=== PATIENT | male | born 1960 | race Caucasian/White ===

== ENCOUNTER → 2020-06-29 09:51 | Outpatient (CLI) | payer BC, SELFPAY ==
--- NOTE | ~2020-06-29 | XR_ITS ---
EXAMINATION: XR shoulder LT min 2V DATE: 06/29/2020 10:13 INDICATION: Left shoulder pain. TECHNIQUE: 4 views of left shoulder were obtained. COMPARISON: None. FINDINGS: Bone alignment is normal. No fracture. Glenohumeral joint is normal. There is mild acromioc lavicular joint osteoarthritis. IMPRESSION: 1. Mild left acromioclavicular joint osteoarthritis. Reviewed, dictated and finalized at location B. ENT SERVICES COORDINATOR
== END ==
PROVIDERS: PCP Family Medicine; Visit Provider Nurse Practitioner Family
DX: M25.512 Pain in left shoulder (principal); M19.012 Primary osteoarthritis, left shoulder
CPT/HCPCS: 73030

== ENCOUNTER 2020-11-11 08:18 | Outpatient (CLI) | payer BC, SELFPAY ==
--- NOTE | ~2020-11-11 | MR_ITS ---
EXAMINATION: MR shoulder LT wo con DATE: 11/11/2020 09:49 INDICATION: Left shoulder pain. TECHNIQUE: Magnetic resonance imaging (MRI) of the left shoulder was performed without intravenous co ntrast. Sequences included axial PD-weighted FS FSE, coronal oblique PD-weighted FS FSE and T2-weight ed FS FSE, and sagittal oblique T2-weighted FS FSE and T1-weighted FSE. COMPARISON: Left shoulder radiographs 06/29/2020 FINDINGS: Coracoacromial arch: The acromion undersurface is curved in morphology (type II). There is severe acromioclavicular joint osteoarthritis including inferiorly directed osteophytes. There is mild subacromial/subdeltoid bursit is. Rotator cuff: There is moderate supraspinatus and infraspinatus tendinopathy. There is an interstitial partial-thic kness tear of supraspinatus tendon at its distal attachment measuring 6 mm anterior to posterior by 2 mm proximal to distal by 50% tendon thickness. Teres minor tendon is normal. There is mild subscapul indra tendinopathy. There is no asymmetric fatty atrophy of the rotator cuff muscle bellies. Biceps tendon and glenoid labrum: Biceps tendon is in bicipital groove. Intra-articular biceps tendon is normal. There is degenerative tearing of the superior glenoid labrum. Fluid: There is a small glenohumeral joint effusion. Bones/cartilage: Humeral head cartilage is normal. Glenoid cartilage is normal. IMPRESSION: 1. Partial-thickness interstitial tear of supraspinatus tendon at its distal attachment. 2. Degenerative tearing of superior glenoid labrum (type I SLAP tear). 3. Severe acromioclavicular joint osteoarthritis. 4. Small glenohumeral joint effusion. 5. Mild subacromial/subdeltoid bursitis. Reviewed, dictated and finalized at location A. IMPRESSION: 1. Partial-thickness interstitial tear of supraspinatus tendon at its distal at tachment. 2. Degenerative tearing of superior glenoid labrum (type I SLAP tear). 3. Severe acromioclavicular joint osteoarthritis. 4. Small glenohumeral joint effusion. 5. Mild subacromial/subdeltoid bursitis.
== END 2020-11-11 08:19 | disposition home or self-care (01) ==
PROVIDERS: PCP Family Medicine; Visit Provider Physician Assistant Medical
DX: M19.012 Primary osteoarthritis, left shoulder (principal); M25.412 Effusion, left shoulder; M75.52 Bursitis of left shoulder; S43.432A Superior glenoid labrum lesion of left shoulder, initial encounter; X58.XXXA Exposure to other specified factors, initial encounter
CPT/HCPCS: 73221

== ENCOUNTER 2021-02-22 03:02 | Day surgery (SDC) | payer BC, SELFPAY ==
[2021-02-08 14:06] VITALS: BMI 26.4
[2021-02-22 06:37] VITALS: BP 138/85; PULSE 82; RESP 20; TEMP 36.2; O2SAT 100; BMI 27.1
[2021-02-22] MEDS: LACTATED RINGERS 1,000 ML 150 ML IV CONT (06:43)
--- NOTE | 2021-02-22 07:28 | P.HP_ITS ---
History of Present Illness History of Present Illness Consent: Risks, benefits, and alternatives have been discussed and questions answered. Patient agrees to proceed with procedure. Chief complaint: neoplasm screening Narrative: Phil Chacon is a 60 year old male Referred for colon cancer screening. His last colonoscopy was 10 years ago. He has had no problems other than seen some red blood in his stools a few months ago which was attributed to hemorrhoids. Review of Systems Review of Systems: All systems reviewed & are unremarkable except as noted in HPI and below PMFSH Past Medical History Medical History Arthritis BMI 27.0-27.9,adult Cholecystectomy planned Fever Hernia Tonsillectomy planned Wears glasses Surgical History Surgical History H/O lithotripsy History of cholecystectomy History of hernia repair History of tonsillectomy Family History Family History Grandparent Hypertension Cerebrovascular accident Family history of malignant neoplasm Family history of lung cancer Father COPD (chronic obstructive pulmonary disease) Mother Diabetes mellitus Hypertension Hyperlipidemia Sibling Hypertension Rheumatoid arthritis Social History Social History Smoking status: Never smoker Second hand tobacco smoke exposure: No Alcohol intake: current Drinks per week: 4 Alcohol use details: Socially Substance use: never Substance use type: does not use Living arrangements: with family Additional occupation/education comments: [employer] Gender identity (if verbalized by the patient): Male Spiritual care concerns: No Meds Home Medications and Allergies Home Medications Medication Instructions Recorded Confirmed Type multivitamin-ferrous 1 tablet PO DAILY 06/29/20 02/08/21 History fumarate-folic acid 18 mg-400 mcg tablet chlorhexidine gluconate 4 % 1 applic TOPICAL ONCE #237 ml 01/23/21 02/08/21 Rx topical liquid atorvastatin 10 mg PO DAILY 02/08/21 02/08/21 History Allergies Allergy/AdvReac Type Severity Reaction Status Date / Time No Known Allergies Allergy Unknown Unknown Uncoded 02/22/21 06:36 Vital Signs Vital Signs - 24 hr 02/22/21 06:37 Temperature 36.2 C L Pulse Rate 82 Respiratory Rate 20 Blood Pressure 138/85 Pulse Oximetry 100 Exam Resp: Auscultation: clear to auscultation bilaterally Cardio: Rate: regular rate Rhythm: regular rhythm GI: GI Palp: Yes Soft to palpation and No Tenderness to palpation present (GI) Assessment and Plan Assessment and plan (1) Screening for colon cancer: Code(s): Z12.11 - Encounter for screening for malignant neoplasm of colon Status: Acute Assessment and Plan: Colonoscopy with possible biopsy or polypectomy or cautery or injection of substances.
--- NOTE | 2021-02-22 07:52 | WPDANESEFPP ---
Anes - Eval Final PreProcedure Day of Procedure 02/22/21 07:52 Patient weight: normal Heart: regular rate and rhythm Lungs: clear to auscultation and normal air movement Airway: Mallampati scale class II Neurological: alert and oriented ASA classification: II Emergent: no Anesthetic plan: proceed Anesthesia type and monitoring: general GIVS and standard monitoring Informed Consent: The patient's anesthetic plan and its attendant risks and benefits were discussed with the patient/family/POA. Questions were solicited and answers provided to the satisfaction of the patient/family/POA.
--- NOTE | 2021-02-22 07:54 | WPDANESEFPP ---
Anes - Eval Final PreProcedure Day of Procedure 02/22/21 07:54 Patient weight: overweight Heart: regular rate and rhythm Lungs: clear to auscultation and normal air movement Airway: Mallampati scale class II Neurological: alert and oriented Last oral intake: >/= 8 hours ASA classification: II Emergent: no Anesthetic plan: proceed Anesthesia type and monitoring: general GIVS Informed Consent: The patient's anesthetic plan and its attendant risks and benefits were discussed with the patient/family/POA. Questions were solicited and answers provided to the satisfaction of the patient/family/POA.
[2021-02-22] MEDS: SIMETHICONE ORAL SUSPENSION 20 MG/0.3 ML 30 ML BOTTLE 0.6 ML IRRIGATION (08:08)
[2021-02-22 08:15] VITALS: BP 108/66; PULSE 68; RESP 18; O2SAT 98
[2021-02-22 08:25] VITALS: BP 112/70; PULSE 63; RESP 18; O2SAT 98
[2021-02-22 08:35] VITALS: BP 128/75; PULSE 61; RESP 19; O2SAT 99
== END 2021-02-22 08:54 | disposition home or self-care (01) ==
PROVIDERS: PCP Family Medicine; Visit Provider Internal Medicine Gastroenterology
PROC: 0DJD8ZZ Inspection of Lower Intestinal Tract, Via Natural or Artificial Opening Endoscopic (ICD-10-PCS; CPT 45378; principal; 2021-02-22 08:00)
DX: Z12.11 Encounter for screening for malignant neoplasm of colon (principal); K57.30 Diverticulosis of large intestine without perforation or abscess without bleeding; K64.8 Other hemorrhoids; M19.90 Unspecified osteoarthritis, unspecified site; Z90.49 Acquired absence of other specified parts of digestive tract
CPT/HCPCS: 45378; J2001; J2704; J7120

== ENCOUNTER 2021-05-14 09:32 | Outpatient (CLI) | payer BC, SELFPAY ==
--- NOTE | 2021-05-14 09:45 | ECG_ITS ---
Measurements Intervals [place] Rate: 50 P: -4 WA: 141 QRS: 52 QRSD: 104 T: 26 QT: 387 QTc: 354 Interpretive Statements SINUS BRADYCARDIA INCOMPLETE RIGHT BUNDLE BRANCH BLOCK BORDERLINE ECG Electronically Signed On 05-14-2021 15:33:14 CDT by Porfirio Ortega D.O.
== END 2021-05-14 09:33 | disposition home or self-care (01) ==
LOC: ANHSURGERY 09:36
PROVIDERS: PCP Family Medicine; Visit Provider Orthopaedic Surgery
DX: Z01.810 Encounter for preprocedural cardiovascular examination (principal); E78.2 Mixed hyperlipidemia; I45.10 Unspecified right bundle-branch block; R00.1 Bradycardia, unspecified
CPT/HCPCS: 93005

== ENCOUNTER 2021-05-15 00:08 | Day surgery (SDC) | payer BC, SELFPAY ==
[2021-05-09 11:01] VITALS: BMI 27.4
--- NOTE | 2021-05-14 11:27 | P.PNAN_ITS ---
Anes - Initial Pre Proc Eval Procedure: Operation Date: 05/15/21 11:00 Proposed Procedures p Left Rotator Cuff Repair, Distal Clavicle Excision - Berry Sosa MD Date/Time: 05/14/21 11:27 Surgeon: Berry Sosa MD Pre Op Diagnosis: Left shoulder rotator cuff tear Patient Data Age: 61 Gender: M Height: 1.65 m Weight: 74.84 kg Allergies Allergy/AdvReac Type Severity Reaction Status Date / Time No Known Allergies Allergy Unknown Unknown Uncoded 05/15/21 09:25 Home Medications Medication Instructions Recorded Confirmed Type multivitamin-ferrous 1 tablet PO DAILY 06/29/20 05/15/21 History fumarate-folic acid 18 mg-400 mcg tablet chlorhexidine gluconate 4 % 1 applic TOPICAL ONCE #237 ml 01/23/21 05/09/21 Rx topical liquid atorvastatin 10 mg PO DAILY 02/08/21 05/09/21 History Patient hx anesthesia problems: none Family hx anesthesia problems: none Results Review: All pre-operative results and documents have been reviewed as part of the pre-operative evaluation. [facility] Past Medical History Medical History (Updated 05/14/21 @ 11:28 by Hayes Light MD) Arthritis BMI 27.0-27.9,adult Cholecystectomy planned Fever Hernia Mixed hyperlipidemia Rotator cuff tear, left Tonsillectomy planned Wears glasses Surgical History Surgical History H/O lithotripsy History of cholecystectomy History of hernia repair History of tonsillectomy Family History Family History Grandparent Hypertension Cerebrovascular accident Family history of malignant neoplasm Family history of lung cancer Father COPD (chronic obstructive pulmonary disease) Mother Diabetes mellitus Hypertension Hyperlipidemia Sibling Hypertension Rheumatoid arthritis Social History Social History Second hand tobacco smoke exposure: No Alcohol intake: current Drinks per week: 4 Alcohol use details: Socially Substance use: never Substance use type: does not use Living arrangements: with family Additional occupation/education comments: [employer] Gender identity (if verbalized by the patient): Male Spiritual care concerns: No Anes - Eval Final PreProcedure Day of Procedure 05/14/21 11:27 Patient weight: overweight Heart: regular rate and rhythm Lungs: clear to auscultation and normal air movement Airway: Mallampati scale class II Neurological: alert and oriented Last oral intake: >/= 8 hours ASA classification: II Emergent: no Anesthetic plan: proceed Anesthesia type and monitoring: general ETT Results Review: All pre-operative results and documents have been reviewed as part of the pre-operative evaluation. Informed Consent: The patient's anesthetic plan and its attendant risks and benefits were discussed with the patient/family/POA. Questions were solicited and answers provided to the satisfaction of the patient/family/POA.
[2021-05-15] VITALS (10 sets, daily range): BP systolic 104–137; BP diastolic 67–85; PULSE 47–65; RESP 10–16; TEMP 36.1–36.4; O2SAT 95–100; BMI 27.6
--- NOTE | 2021-05-15 07:13 | WPDANESPNB ---
Anes - Peripheral Nerve Block Date/Time: 05/15/21 07:13 I have discussed with the patient/family/POA the placement of a peripheral nerve block for post-operative pain management, including associated risks, benefits, complications, and side effects. Alternative methods of post-operative analgesia were detailed. Questions were solicited and answers provided to the satisfaction of the patient/family/POA. Time-Out: A pre-procedural Time-Out was completed immediately before starting the procedure and confirmed: Patient Identification, Site, Procedure, Patient Position and the Availability of Requisite Equipment. Clinical Indications: Acute post-operative pain management requested by the operative surgeon. Nerve Block Insertion Note Anes-nerve block: supraclavicular left Patient position: supine Skin prep: chlorhexidine Needle: 22 gauge, stimulating, insulated echogenic needle. Needle length: 80 mm Technique: ultrasound (in plane) Injectate: bupivacaine 0.5% with epi 5 mcg/ml (20cc) Observations: tolerated well Complications: none Procedure start time:: 1055 Procedure end time:: 1100
--- NOTE | 2021-05-15 07:42 | WPDHPUPDATE1 ---
History and Physical Update Update Date/Time: 05/15/21 07:42 History and Physical has been reviewed, including an updated exam of the patient. There are NO changes in the patient's condition. Risks, benefits, and alternatives have been discussed and questions answered. Patient agrees to proceed with procedure.
[2021-05-15] MEDS: ACETAMINOPHEN 500 MG TABLET 1000 MG PO (09:45)
[2021-05-15] MEDS: CELECOXIB 200 MG CAPSULE PO (09:46)
[2021-05-15] MEDS: LACTATED RINGERS 1,000 ML 30 ML IV CONT ×2 (10:15→13:03)
[2021-05-15] MEDS: ceFAZolin 2 GM/D5W 50 ML 2 GM/50 ML BAG IVPB (11:15)
--- NOTE | 2021-05-15 13:35 | P.OP_ITS ---
Procedure Note - Detailed Date of Procedure 05/15/21 Pre-op Diagnosis Left shoulder rotator cuff tear Post-op Diagnosis same Procedure Performed REPAIR LEFT ROTATOR CUFF WITH DCE Surgeon Berry Sosa MD Anesthesia general Description of Procedure THE PATIENT WAS TAKEN TO THE OPERATING ROOM AND THEN INTUBATED AND PLACED IN THE BEACH CHAIR POSITION. THE LEFT UPPER EXTREMITY WAS PREPPED AND DRAPED IN THE NORMAL STERILE FASHION. AN INCISION WAS MADE IN BETWEEN THE ELYSE-LATERAL ACROMION AND THE AC JOINT. THE FASCIA WAS IDENTIFIED. THE AC JOINT WAS IDENTIFIED AND INCISED. THERE WAS SEVERE DJD TO THE AC JOINT. A DISTAL CLAVICLE EXCISION WAS PREFORMED. THE WOUND WAS IRRIGATED AND THE CAPSULE WAS REPAIRED WITH 0 VICRYL SUTURE. NEXT A MINI OPEN INCISION WAS MADE THROUGH THE DELTOID MUSCLE EXPOSING THE SUBACROMIAL SPACE. A LIMITED ACROMIOPLASTY WAS PREFORMED. THE ROTATOR CUFF WAS IDENTIFIED. THERE WAS A NEAR FULL THICKNESS TEAR AT THE GREATER TUBEROSITY. THERE WERE NO OTHER TEARS FOUND. THE TEAR MEASURED APPROXIMATELY 1 CM X 1 CM. THE GREATER TUBEROSITY WAS DEBRIDED TO BLEEDING BONE. 1 ARTHREX 5.5 SUTURE ANCHOR WAS PLACED IN TO GOOD BONE AND HAD VERY GOOD BITE. SANDRA-LILIANE TYPE REPAIRS WERE DONE TO THE ROTATOR CUFF AND THERE WAS GOOD APPROXIMATION TO THE GREATER TUBEROSITY. THE REPAIR WAS EXCELLENT. THERE WAS NO IMPINGEMENT ON THE REPAIR FROM THE ACROMION WITH RANGE OF MOTION. THE WOUND WAS IRRIGATED WITH COPIOUS AMOUNTS OF ANTIBIOTIC SOLUTION. THE DELTOID MUSCLE WAS REPAIRED WITH #2 FIBER WIRE AND 0 VICRYL SUTURE. THE SUBCUTANEOUS LAYER WAS APPROXIMATED WITH 2-0 VICRYL. THE SKIN WAS APPROXIMATED WITH 3-0 QUIL AND DERMABOND. STERILE DRESSING WAS APPLIED. PATIENT WAS EXTUB ATED. Estimated Blood Loss -20.0 Complications No immediate complications Condition stable Disposition PACU
== END 2021-05-15 15:05 | disposition home or self-care (01) ==
PROVIDERS: PCP Family Medicine; Visit Provider Orthopaedic Surgery
PROC: (CPT 23420; principal; 2021-05-15 11:00)
DX: M75.102 Unspecified rotator cuff tear or rupture of left shoulder, not specified as traumatic (principal); G89.18 Other acute postprocedural pain; E78.2 Mixed hyperlipidemia
CPT/HCPCS: 23420; 23120; 64415; A9270; C1713; J0690; J1100; J1170; J2250; J2405; J2704; J2710; J3010; J7120

== ENCOUNTER → 2021-12-18 09:50 | Outpatient (CLI) | payer OTHER, SELFPAY ==
--- NOTE | ~2021-12-18 | XR_ITS ---
EXAMINATION: XR chest 2V 12/18/2021 10:10 INDICATION: Contact with asbestos PROCEDURE: 2 view chest COMPARISON: 05/07/2007 FINDINGS: The lungs are clear. The cardiomediastinal silhouette is within normal limits. There are no pleural effusions. There is no pneumothorax suspected. IMPRESSION: 1: NO ACUTE CARDIOPULMONARY DISEASE. Reviewed, dictated and finalized at location A.
== END ==
PROVIDERS: PCP Family Medicine; Visit Provider Physician Assistant Medical
DX: Z77.090 Contact with and (suspected) exposure to asbestos (principal)
CPT/HCPCS: 71046

== ENCOUNTER 2023-10-22 13:39 | Outpatient (CLI) | payer OTHER, SELFPAY ==
--- NOTE | ~2023-10-22 | XR_ITS ---
XR knee LT 3V DATE: 10/22/2023 13:55 INDICATION: Left knee pain TECHNIQUE: [place] and standing AP and lateral views COMPARISON: None FINDINGS: No fracture or dislocation or joint effusion is evident. Minimal periarticular spurring at the patellofemoral and lateral compartments. Benign approximately 8 x 12.7 mm lucent lesion with scle rotic margin at the medial aspect of the medial tibial plateau, likely degenerative. Joint spaces are relatively preserved. No radiopaque intra-articular loose body or chondral calcinosis. IMPRESSION: Mild tricompartment osteoarthritis Reviewed, dictated and finalized at location B.
== END 2023-10-22 13:40 ==
LOC: MICIMG 13:40
PROVIDERS: PCP Nurse Practitioner Family; Visit Provider Nurse Practitioner Family
DX: M17.12 Unilateral primary osteoarthritis, left knee (principal)
CPT/HCPCS: 73562

== ENCOUNTER 2024-02-11 09:32 | Outpatient (CLI) | payer OTHER, SELFPAY ==
--- NOTE | ~2024-02-11 | MR_ITS ---
EXAMINATION: MR knee LT wo con DATE: 02/11/2024 10:10 INDICATION: M25.562 - Pain in left knee TECHNIQUE: Magnetic resonance imaging (MRI) of the left knee was performed without intravenous contra st. Sequences included axial PD-weighted FS FSE, coronal PD-weighted FSE and PD-weighted FS FSE, sagi ttal PD-weighted FSE, and sagittal T2-weighted FS FSE. COMPARISON: X-ray left knee 10/22/2023 FINDINGS: Medial compartment: Moderate diffuse cartilage thinning. 3 mm full-thickness cartilage loss on the medial plateau. Apical tear of the meniscal body. Oblique undersurface tear involving the meniscal body and the posterior h orn Lateral compartment: Moderate diffuse cartilage thinning. Intact meniscus. Patellofemoral compartment: Moderate diffuse cartilage thinning. Button osteophyte on the medial facet. Retinacula intact. Ligaments and tendons: The ACL, PCL, MCL, and LCL are intact. Remaining flexor and extensor tendons are intact. Fluid: No significant fluid collection. Osseous/other: No suspicious focal or diffuse marrow signal. Large degenerative subchondral cysts in the medial plat eau. Small degenerative cyst at the medial facet/median ridge of the patella. IMPRESSION: Apical and oblique tears of the medial meniscus. Tricompartmental moderate osteoarthritic changes, most pronounced in the medial compartment Reviewed, dictated and finalized at location K.
== END 2024-02-11 09:33 ==
PROVIDERS: PCP Family Medicine; Visit Provider Nurse Practitioner Family
DX: S83.242A Other tear of medial meniscus, current injury, left knee, initial encounter (principal); M17.12 Unilateral primary osteoarthritis, left knee; X58.XXXA Exposure to other specified factors, initial encounter
CPT/HCPCS: 73721